=== PATIENT | female | born 1940 | race Caucasian/White ===

== ENCOUNTER → 2023-11-11 08:36 | Outpatient (REF) | payer MEDICARE, SELFPAY ==
[2023-11-11 09:53] LABS: % Basophils 0.4 % (0-2); % Eosinophils 1.7 % (0-6); % Immature Granulocytes 0.4 % (0-0.5); % Monocytes 8.8 % (1.7-9.3); % Neutrophils 62.7 % (42.2-75.2); Absolute Eosinophils 0.1 10^3/uL (0-0.7); Absolute Lymphocytes 1.4 10^3/uL (1.2-3.4); Absolute Monocytes 0.5 10^3/uL (0.1-0.6); Absolute Neutrophils 3.3 10^3/uL (1.4-6.5); Hematocrit 41.2 % (37.0-47.0); Hemoglobin 13.9 g/dL (12.0-16.0); Mean Corp Hgb Conc. 33.7 g/dL (33.0-37.0); Mean Corpuscular Hgb 31.1 pg (27.0-31.0); Mean Corpuscular Volume 92.2 fL (81.0-99.0); Mean Platelet Volume 9.9 fL (7.4-10.4); Nucleated Red Blood Cells % 0 %; Platelet Count 162 10^3/uL (130-400); Red Blood Cell Count 4.47 10^6/uL (4.20-5.40); Red Cell Dist. Width 12.6 % (11.5-14.5); White Blood Cell Count 5.2 10^3/uL (4.8-10.8)
[2023-11-11 10:27] LABS: C-Reactive Protein < 5.00 mg/L (0.0-10.00)
[2023-11-11 10:34] LABS: ALT (SGPT) 15 U/L (0-35); AST (SGOT) 30 U/L (14-36); Albumin 4.9 g/dl (3.5-5.0); Alkaline Phosphatase 51 U/L (38-126); Blood Urea Nitrogen 19 mg/dl (7-17); Calcium 10.2 mg/dl (8.4-10.2); Carbon Dioxide 27 mmol/L (22-30); Chloride 102 mmol/L (98-107); Glucose 114 mg/dl (70-99); HDL Cholesterol 70 mg/dl; LDL Cholesterol, Calculated 123 mg/dl; Potassium 4.6 mmol/L (3.5-5.1); Sodium 137 mmol/L (135-145); Total Bilirubin 1.1 mg/dl (0.2-1.3); Total Cholesterol 213 mg/dl (50-199); Total Protein 8.2 g/dl (6.3-8.2); Triglyceride 104 mg/dl (10-149); Very Low Density Lipoprotein 20 mg/dl (0-30); eGFR > 60.00
[2023-11-11 11:00] LABS: TSH 1.49 uIU/ml (0.47-4.68)
== END ==
LOC: REG 08:36
PROVIDERS: ATTENDING PHYSICIAN Internal Medicine Endocrinology, Diabetes & Metabolism; FAMILY PHYSICIAN Family Medicine; REFERRING PHYSICIAN Internal Medicine Rheumatology
DX: R73.03 Prediabetes (principal); E55.9 Vitamin D deficiency, unspecified; E06.3 Autoimmune thyroiditis; D89.0 Polyclonal hypergammaglobulinemia; M05.89 Other rheumatoid arthritis with rheumatoid factor of multiple sites; M79.642 Pain in left hand; M81.0 Age-related osteoporosis without current pathological fracture; Z68.21 Body mass index [BMI] 21.0-21.9, adult; Z79.899 Other long term (current) drug therapy
CPT/HCPCS: 36415; 80053; 80061; 82306; 83036; 84443; 85025; 86140

== ENCOUNTER → 2023-12-02 09:25 | Outpatient (REF) | payer MEDICARE, SELFPAY | LOC: RAD 09:25 | PROVIDERS: ATTENDING PHYSICIAN Internal Medicine Gastroenterology; FAMILY PHYSICIAN Family Medicine | DX: B18.2 Chronic viral hepatitis C (principal) | CPT/HCPCS: 76700 ==

== ENCOUNTER → 2024-03-08 11:35 | Outpatient (REF) | payer MEDICARE, SELFPAY ==
[2024-03-08 14:02] LABS: % Basophils 0.3 % (0-2); % Immature Granulocytes 0.2 % (0-0.5); % Lymphocytes 25.4 % (20.5-51.1); % Neutrophils 65.1 % (42.2-75.2); Absolute Eosinophils 0.1 10^3/uL (0-0.7); Absolute Lymphocytes 1.5 10^3/uL (1.2-3.4); Absolute Monocytes 0.4 10^3/uL (0.1-0.6); Absolute Neutrophils 3.9 10^3/uL (1.4-6.5); Hematocrit 37.8 % (37.0-47.0); Hemoglobin 12.8 g/dL (12.0-16.0); Mean Corp Hgb Conc. 33.9 g/dL (33.0-37.0); Mean Corpuscular Hgb 30.5 pg (27.0-31.0); Mean Corpuscular Volume 90.2 fL (81.0-99.0); Nucleated Red Blood Cells % 0 %; Platelet Count 149 10^3/uL (130-400); Red Blood Cell Count 4.19 10^6/uL (4.20-5.40)
[2024-03-08 14:26] LABS: ALT (SGPT) 11 U/L (0-35); AST (SGOT) 26 U/L (14-36); Albumin 4.7 g/dl (3.5-5.0); Alkaline Phosphatase 58 U/L (38-126); Blood Urea Nitrogen 17 mg/dl (7-17); Calcium 9.7 mg/dl (8.4-10.2); Carbon Dioxide 29 mmol/L (22-30); Chloride 105 mmol/L (98-107); Glucose 85 mg/dl (70-99); Potassium 4.3 mmol/L (3.5-5.1); Sodium 138 mmol/L (135-145); Total Bilirubin 0.5 mg/dl (0.2-1.3); Total Protein 7.4 g/dl (6.3-8.2); eGFR > 60.00
[2024-03-08 14:30] LABS: C-Reactive Protein < 5.00 mg/L (0.0-10.00)
[2024-03-08 14:46] LABS: Vitamin D, 25-OH*** 51.4 ng/mL (30-80)
== END ==
LOC: REG 11:35
PROVIDERS: ATTENDING PHYSICIAN Internal Medicine Rheumatology; FAMILY PHYSICIAN Family Medicine
DX: E55.9 Vitamin D deficiency, unspecified (principal); M05.89 Other rheumatoid arthritis with rheumatoid factor of multiple sites; M05.9 Rheumatoid arthritis with rheumatoid factor, unspecified; Z79.899 Other long term (current) drug therapy
CPT/HCPCS: 36415; 80053; 82306; 85025; 86140

== ENCOUNTER → 2024-05-10 13:09 | Outpatient (REF) | payer MEDICARE, SELFPAY | LOC: RAD 13:09 | PROVIDERS: ATTENDING PHYSICIAN Internal Medicine Rheumatology; FAMILY PHYSICIAN Family Medicine | DX: M81.0 Age-related osteoporosis without current pathological fracture (principal); Z13.820 Encounter for screening for osteoporosis | CPT/HCPCS: 77080 ==

== ENCOUNTER → 2024-07-13 08:16 | Outpatient (REF) | payer MEDICARE, SELFPAY ==
[2024-07-13 09:09] LABS: % Basophils 0.3 % (0-2); % Eosinophils 2.4 % (0-6); % Immature Granulocytes 0.2 % (0-0.5); % Lymphocytes 20.8 % (20.5-51.1); % Monocytes 8.3 % (1.7-9.3); Absolute Eosinophils 0.2 10^3/uL (0-0.7); Absolute Lymphocytes 1.3 10^3/uL (1.2-3.4); Absolute Monocytes 0.5 10^3/uL (0.1-0.6); Absolute Neutrophils 4.2 10^3/uL (1.4-6.5); Hematocrit 43.6 % (37.0-47.0); Hemoglobin 14.3 g/dL (12.0-16.0); Mean Corp Hgb Conc. 32.8 g/dL (33.0-37.0); Mean Corpuscular Hgb 30.6 pg (27.0-31.0); Mean Corpuscular Volume 93.2 fL (81.0-99.0); Mean Platelet Volume 9.6 fL (7.4-10.4); Nucleated Red Blood Cells % 0 %; Platelet Count 171 10^3/uL (130-400); Red Blood Cell Count 4.68 10^6/uL (4.20-5.40); Red Cell Dist. Width 12.2 % (11.5-14.5); White Blood Cell Count 6.2 10^3/uL (4.8-10.8)
[2024-07-13 09:39] LABS: ALT (SGPT) 17 U/L (0-35); AST (SGOT) 30 U/L (14-36); Albumin 4.9 g/dl (3.5-5.0); Alkaline Phosphatase 47 U/L (38-126); Blood Urea Nitrogen 13 mg/dl (7-17); Calcium 9.8 mg/dl (8.4-10.2); Carbon Dioxide 29 mmol/L (22-30); Chloride 103 mmol/L (98-107); Direct Bilirubin 0.1 mg/dl (0.0-0.4); Glucose 108 mg/dl (70-99); HDL Cholesterol 72 mg/dl; Iron 103 ug/dl (37-170); LDL Cholesterol, Calculated 130 mg/dl; Potassium 4.4 mmol/L (3.5-5.1); Sodium 141 mmol/L (135-145); Total Bilirubin 0.7 mg/dl (0.2-1.3); Total Cholesterol 220 mg/dl (50-199); Total Protein 8.2 g/dl (6.3-8.2); Triglyceride 94 mg/dl (10-149); Very Low Density Lipoprotein 18 mg/dl (0-30); eGFR > 60.00
[2024-07-13 09:48] LABS: Percent Saturation 34 % (20-50); Total Iron Binding Capacity 299 ug/dl (265-497)
[2024-07-13 13:08] LABS: Ferritin 48.1 ng/ml (11.1-264.0)
[2024-07-13 13:13] LABS: Ferritin 48.4 ng/ml (11.1-264.0)
== END ==
LOC: REG 08:16
PROVIDERS: ATTENDING PHYSICIAN Internal Medicine Rheumatology; FAMILY PHYSICIAN Family Medicine
DX: D89.0 Polyclonal hypergammaglobulinemia (principal); E55.9 Vitamin D deficiency, unspecified; M05.89 Other rheumatoid arthritis with rheumatoid factor of multiple sites; M79.642 Pain in left hand; M81.0 Age-related osteoporosis without current pathological fracture; Z79.899 Other long term (current) drug therapy; D50.0 Iron deficiency anemia secondary to blood loss (chronic); E78.2 Mixed hyperlipidemia
CPT/HCPCS: 36415; 80053; 80061; 82248; 82728; 83540; 83550; 85025

== ENCOUNTER → 2024-08-01 07:31 | Outpatient (REF) | payer MEDICARE, SELFPAY | LOC: PAVMRI 07:31 | PROVIDERS: ATTENDING PHYSICIAN Nurse Practitioner; FAMILY PHYSICIAN Family Medicine | DX: B18.2 Chronic viral hepatitis C (principal); K74.69 Other cirrhosis of liver | CPT/HCPCS: 74183; A9581 ==

== ENCOUNTER → 2024-08-22 08:15 | Outpatient (REF) | payer MEDICARE, SELFPAY | LOC: WDC 08:15 | PROVIDERS: ATTENDING PHYSICIAN Family Medicine; REFERRING PHYSICIAN Internal Medicine Gastroenterology | DX: Z12.31 Encounter for screening mammogram for malignant neoplasm of breast (principal); R10.9 Unspecified abdominal pain | CPT/HCPCS: 74019; 77063; 77067 ==

== ENCOUNTER → 2024-11-15 09:24 | Outpatient (REF) | payer MEDICARE, SELFPAY ==
[2024-11-15 10:49] LABS: % Basophils 0.5 % (0-2); % Immature Granulocytes 0.3 % (0-0.5); % Lymphocytes 27.2 % (20.5-51.1); % Monocytes 7.8 % (1.7-9.3); % Neutrophils 62.2 % (42.2-75.2); Absolute Eosinophils 0.1 10^3/uL (0-0.7); Absolute Lymphocytes 1.6 10^3/uL (1.2-3.4); Absolute Monocytes 0.5 10^3/uL (0.1-0.6); Absolute Neutrophils 3.7 10^3/uL (1.4-6.5); Hematocrit 42.6 % (37.0-47.0); Hemoglobin 14.1 g/dL (12.0-16.0); Mean Corp Hgb Conc. 33.1 g/dL (33.0-37.0); Mean Corpuscular Hgb 30.7 pg (27.0-31.0); Mean Corpuscular Volume 92.8 fL (81.0-99.0); Mean Platelet Volume 10.5 fL (7.4-10.4); Nucleated Red Blood Cells % 0 %; Platelet Count 158 10^3/uL (130-400); Red Blood Cell Count 4.59 10^6/uL (4.20-5.40); Red Cell Dist. Width 12.4 % (11.5-14.5); White Blood Cell Count 5.9 10^3/uL (4.8-10.8)
[2024-11-15 10:53] LABS: INR 0.93
[2024-11-15 11:03] LABS: Glycohemoglobin (HgbA1c) 5.8 % (4.0-5.6)
[2024-11-15 11:50] LABS: ALT (SGPT) 16 U/L (0-35); AST (SGOT) 30 U/L (14-36); Albumin 4.6 g/dl (3.5-5.0); Alkaline Phosphatase 56 U/L (38-126); Blood Urea Nitrogen 14 mg/dl (7-17); Carbon Dioxide 28 mmol/L (22-30); Chloride 104 mmol/L (98-107); Glucose 101 mg/dl (70-99); HDL Cholesterol 63 mg/dl; LDL Cholesterol, Calculated 126 mg/dl; Potassium 4.7 mmol/L (3.5-5.1); Sodium 142 mmol/L (135-145); Total Bilirubin 0.9 mg/dl (0.2-1.3); Total Cholesterol 209 mg/dl (50-199); Total Protein 8.1 g/dl (6.3-8.2); Triglyceride 100 mg/dl (10-149); Very Low Density Lipoprotein 20 mg/dl (0-30); eGFR > 60.00
[2024-11-15 16:13] LABS: C-Reactive Protein < 5.00 mg/L (0.0-10.00)
[2024-11-15 16:30] LABS: Vitamin D, 25-OH*** 57.7 ng/mL (30-80)
[2024-11-15 16:44] LABS: TSH 3.02 uIU/ml (0.47-4.68)
[2024-11-16 18:39] LABS: AFP Male/Tumor Marker 2.47 ng/ml
== END ==
LOC: REG 09:24
PROVIDERS: ATTENDING PHYSICIAN Nurse Practitioner; FAMILY PHYSICIAN Family Medicine; OTHER PHYSICIAN Internal Medicine Endocrinology, Diabetes & Metabolism; REFERRING PHYSICIAN Internal Medicine Rheumatology
DX: D89.0 Polyclonal hypergammaglobulinemia (principal); E55.9 Vitamin D deficiency, unspecified; E78.49 Other hyperlipidemia; M05.89 Other rheumatoid arthritis with rheumatoid factor of multiple sites; M79.642 Pain in left hand; M81.0 Age-related osteoporosis without current pathological fracture; Z79.899 Other long term (current) drug therapy; R73.03 Prediabetes; E06.3 Autoimmune thyroiditis; K74.69 Other cirrhosis of liver; B18.2 Chronic viral hepatitis C
CPT/HCPCS: 36415; 80053; 80061; 82105; 82306; 83036; 84443; 85025; 85610; 86140

== ENCOUNTER → 2025-01-30 12:57 | Outpatient (REF) | payer MEDICARE, SELFPAY | LOC: RAD 12:57 | PROVIDERS: ATTENDING PHYSICIAN Internal Medicine Gastroenterology; FAMILY PHYSICIAN Family Medicine | DX: K74.69 Other cirrhosis of liver (principal) | CPT/HCPCS: 76700 ==

== ENCOUNTER 2025-04-19 06:21 | Day surgery (SDC) | payer MEDICARE, SELFPAY | END 2025-04-19 10:32 | disposition home or self-care (01) | LOC: GI 06:21 | PROVIDERS: ATTENDING PHYSICIAN Internal Medicine Gastroenterology | DX: Z13.810 Encounter for screening for upper gastrointestinal disorder (principal); K22.89 Other specified disease of esophagus; K44.9 Diaphragmatic hernia without obstruction or gangrene; K31.89 Other diseases of stomach and duodenum | CPT/HCPCS: 43235 ==

== ENCOUNTER → 2025-06-04 09:08 | Outpatient (REF) | payer MEDICARE, SELFPAY ==
[2025-06-04 19:12] LABS: Hepatitis C Antibody Reactive (Negative)
[2025-06-06 21:28] LABS: HCV Quant by NAAT IU/mL Not Detected; HCV Quant by NAAT Interp Not Detected (Not Detected); HCV Quant by NAAT Log IU/mL Not Detected log IU/mL
== END ==
LOC: REG 09:08
PROVIDERS: ATTENDING PHYSICIAN Internal Medicine Gastroenterology; FAMILY PHYSICIAN Family Medicine
DX: B18.2 Chronic viral hepatitis C (principal)
CPT/HCPCS: 36415; 86803; 87522

== ENCOUNTER → 2025-07-18 09:38 | Outpatient (REF) | payer MEDICARE, SELFPAY ==
[2025-07-18 10:18] LABS: Hematocrit 40.2 % (37.0-47.0); Hemoglobin 13.3 g/dL (12.0-16.0); Mean Corp Hgb Conc. 33.1 g/dL (33.0-37.0); Mean Corpuscular Volume 92.2 fL (81.0-99.0); Nucleated Red Blood Cells % 0 %; Platelet Count 164 10^3/uL (130-400); Red Cell Dist. Width 12.6 % (11.5-14.5)
[2025-07-18 11:03] LABS: ALT (SGPT) 17 U/L (0-35); AST (SGOT) 29 U/L (14-36); Albumin 4.9 g/dl (3.5-5.0); Alkaline Phosphatase 46 U/L (38-126); Blood Urea Nitrogen 14 mg/dl (7-17); Calcium 9.7 mg/dl (8.4-10.2); Carbon Dioxide 29 mmol/L (22-30); Chloride 104 mmol/L (98-107); Glucose 97 mg/dl (70-99); HDL Cholesterol 68 mg/dl; Iron 119 ug/dl (37-170); LDL Cholesterol, Calculated 133 mg/dl; Potassium 4.0 mmol/L (3.5-5.1); Sodium 140 mmol/L (135-145); Total Protein 8.4 g/dl (6.3-8.2); Very Low Density Lipoprotein 18 mg/dl (0-30); eGFR > 60.00
[2025-07-18 11:13] LABS: Total Iron Binding Capacity 309 ug/dl (265-497)
[2025-07-18 16:27] LABS: TSH 4.01 uIU/ml (0.47-4.68)
[2025-07-18 16:31] LABS: Ferritin 58.3 ng/ml (11.1-264.0)
== END ==
LOC: REG 09:38
PROVIDERS: ATTENDING PHYSICIAN Family Medicine
DX: I70.0 Atherosclerosis of aorta (principal); D50.0 Iron deficiency anemia secondary to blood loss (chronic); E03.9 Hypothyroidism, unspecified
CPT/HCPCS: 36415; 80053; 80061; 82728; 83540; 83550; 84443; 85025